=== PATIENT | male | born 1945 | race American Indian/Alaskan Native ===

== ENCOUNTER 2017-08-17 00:26 | Emergency (ER) | payer MEDICARE, OTHER ==
[2017-08-17 00:41] VITALS: TEMP 98
--- NOTE | 2017-08-17 01:00 | ED PDOC ---
Arrival/HPI - General Chief Complaint: Dizziness/Lightheaded Time Seen by Provider: 08/17/17 00:42 Historian: Patient, EMS - History of Present Illness Narrative History of Present Illness (Text): 08/17/17 00:54 72 year old male, with past medical history of arthritis, presents to the Emergency department via EMS accompanied by family complaining of hypertension and confusion prior to arrival. Patient informs feeling unwell with symptoms of high blood pressure and confusion while in the [place] cruise ship 1 day ago. As per ALS, patient was administered 5mg of IV lopressor after having a blood pressure of 210/110. Patient is currently in no acute distress and informs improvement to symptoms. Patient denies any headache but informs mild discomfort to back of his neck. Patient denies any chest pain, shortness of breath, abdominal pain, fever, chills, nausea, vomiting, diarrhea or any other complaints. Patient does not smoke but admits to occasional consumption of alcohol socially. Time/Duration: Prior to Arrival Symptom Onset: Gradual Symptom Course: Improving Activities at Onset: Light Context: Other (Cruise ship) Past Medical History - Provider Review Nursing Documentation Reviewed: Yes - Travel History If Yes, travel location?: [facility] - Infectious Disease Hx of Infectious Diseases: None - Musculoskeletal/Rheumatological Hx Musculoskeletal Disorders: Yes Hx Arthritis: Yes - Psychiatric Hx Substance Use: No Family/Social History - Physician Review Nursing Documentation Reviewed: Yes Family/Social History: No Known Family HX Smoking Status: Never Smoked Hx Alcohol Use: No Hx Substance Use: No Allergies/Home Meds Allergies/Adverse Reactions: Allergies No Known Allergies Allergy (Verified 08/17/17 00:38) Home Medications: Home Meds Medication Instructions Recorded Confirmed Losartan [Cozaar] 50 mg PO DAILY 08/17/17 08/17/17 Review of Systems - Physician Review All systems were reviewed & negative as marked: Yes - Review of Systems Constitutional: Normal. absent: Fevers Eyes: Normal ENT: Normal Respiratory: Normal. absent: SOB Cardiovascular: Other (High Blood Pressure ). absent: Chest Pain Gastrointestinal: Normal. absent: Abdominal Pain, Diarrhea, Nausea, Vomiting Genitourinary Male: Normal Musculoskeletal: Normal Skin: Normal Neurological: Normal Endocrine: Normal Hemo/Lymphatic: Normal Psychiatric: Other (Confusion ) Physical Exam Vital Signs Reviewed: Yes Vital Signs Temp Pulse Resp BP Pulse Ox 08/17/17 04:16 169/90 H 08/17/17 03:29 83 19 96 08/17/17 00:40 98.0 F 76 23 141/92 H 100 Temperature: Afebrile Blood Pressure: Hypertensive Pulse: Regular Respiratory Rate: Normal Appearance: Positive for: Well-Appearing, Non-Toxic, Comfortable Pain Distress: None Mental Status: Positive for: Alert and Oriented X 3 - Systems Exam Head: Present: Atraumatic, Normocephalic Pupils: Present: PERRL Extroacular Muscles: Present: EOMI Conjunctiva: Present: Normal Mouth: Present: Moist Mucous Membranes Neck: Present: Normal Range of Motion Respiratory/Chest: Present: Clear to Auscultation, Good Air Exchange. No: Respiratory Distress, Accessory Muscle Use Cardiovascular: Present: Regular Rate and Rhythm, Normal S1, S2. No: Murmurs Abdomen: Present: Normal Bowel Sounds. No: Tenderness, Distention, Peritoneal Signs Back: Present: Normal Inspection Upper Extremity: Present: Normal Inspection. No: Cyanosis, Edema Lower Extremity: Present: Normal Inspection. No: Edema Neurological: Present: GCS=15, CN II-XII Intact, Speech Normal Skin: Present: Warm, Dry, Normal Color. No: Rashes Psychiatric: Present: Alert, Oriented x 3, Normal Insight, Normal Concentration Medical Decision Making ED Course and Treatment: 08/17/17 01:01 Impression: 72 year old male presents to the Emergency department for elevated blood pressure and confusion. Plan: -- EKG -- Labs -- CT of Head -- Reassess and disposition Progress Notes: 08/17/17 02:29 CT of head reviewed by radiologist, shows nonspecific white matter changes. Acute infarction may be CT occult within first 24 hours. If a focal deficit persists, consider followup CT or MRI for further evaluation. - Lab Interpretations Lab Results: 08/17/17 01:10 08/17/17 01:10 Lab Results 08/17/17 01:10: Alcohol, Quantitative < 10 08/17/17 01:10: Sodium 141, Potassium 3.5 L, Chloride 101, Carbon Dioxide 26, Anion Gap 18, BUN 21, Creatinine 0.7 L, Est GFR ( Amer) > 60, Est GFR ( Non-Af Amer) > 60, Random Glucose 131 H, Calcium 10.0, Total Bilirubin 1.0, AST 37, ALT 52, Alkaline Phosphatase 40, Total Protein 8.1, Albumin 4.6, Globulin 3.6, Albumin/Globulin Ratio 1.3 08/17/17 01:10: WBC 9.2, RBC 4.41, Hgb 14.2, Hct 42.2, MCV 95.7, MCH 32.2, MCHC 33.6, RDW 13.6, Plt Count 237, MPV 9.3, Gran % 55.8, Lymph % (Auto) 35.6 H, [place] % (Auto) 7.6 H, Eos % (Auto) 0.8 L, Baso % (Auto) 0.2, Gran # 5.12, Lymph # 3.3, [place] # 0.7 H, Eos # 0.1, Baso # 0.02 08/17/17 00:50: POC Glucose (mg/dL) 131 H - RAD Interpretation Radiology Orders: 08/17/17 00:56 HEAD W/O CONTRAST [CT] 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 All medical record entries made by the Gurmeet were at my direction and personally dictated by me. I have reviewed the chart and agree that the record accurately reflects my personal performance of the history, physical exam, medical decision making, and the department course for this patient. I have also personally directed, reviewed, and agree with the discharge instructions and disposition. Disposition/Present on Arrival - Present on Arrival Any Indicators Present on Arrival: No History of DVT/PE: No History of Uncontrolled Diabetes: No Urinary Catheter: No History of Decub. Ulcer: No History Surgical Site Infection Following: None - Disposition Have Diagnosis and Disposition been Completed?: Yes Diagnosis: Hypertension Disposition: HOME/ ROUTINE Disposition Time: 07:00 Patient Plan: Discharge Condition: STABLE Prescriptions: amLODIPine [Norvasc] 10 mg PO DAILY #30 tab Forms: Fitfully (Slovak)
[2017-08-17 02:27] LABS: BASO # 0.02 K/mm3 (0.0-2.0); BASO % 0.2 % (0.0-3.0); EOS # 0.1 (0.0-0.7); EOS % 0.8 % (1.5-5.0); GRAN # 5.12 (1.4-6.5); GRAN % 55.8 % (50.0-68.0); HEMOGLOBIN 14.2 g/dL (14.0-18.0); LYMPH # 3.3 (1.2-3.4); LYMPH % 35.6 % (22.0-35.0); MEAN CELL VOLUME 95.7 fl (80.0-105.0); MEAN CORPUSCULAR HEMOGLOBIN 32.2 pg (25.0-35.0); MEAN CORPUSCULAR HGB CONC 33.6 g/dl (31.0-37.0); MEAN PLATELET VOLUME 9.3 fl (7.0-11.0); MONO # 0.7 (0.1-0.6); MONO % 7.6 % (1.0-6.0); RBC 4.41 10^6/uL (3.5-6.1); RED CELL DISTRIBUTION WIDTH 13.6 % (11.5-14.5); WHITE BLOOD COUNT 9.2 10^3/ul (4.5-11.0)
--- NOTE | 2017-08-17 02:28 | CT ---
EXAM: CT Head Without Intravenous Contrast CLINICAL HISTORY: 72 years old, male; Signs and symptoms; Altered mental status/memory loss TECHNIQUE: Axial computed tomography images of the head/brain without intravenous contrast. All CT scans at this facility use one or more dose reduction techniques, viz.: automated exposure control; ma/kV adjustment per patient size (including targeted exams where dose is matched to indication; i.e. head); or iterative reconstruction technique. Coronal and sagittal reformatted images were created and reviewed. COMPARISON: No relevant prior studies available. FINDINGS: Brain: [id number]-bo-[id number] atrophy. No intracranial hemorrhage. No mass. Minimal decreased attenuation within periventricular white matter. No definite edema. Ventricles: No hydrocephalus. Bones/joints: No acute fracture. Soft tissues: Unremarkable. Vasculature: Atherosclerotic disease of intracranial arteries. Sinuses: Scattered minimal to mild mucosal thickening. Tiny LEFT maxillary retention cyst. Mastoid air cells: No mastoid effusion. Orbits: Unremarkable as visualized. IMPRESSION: 1. Nonspecific white matter changes. Acute infarction may be CT occult within first 24 hours. If a focal deficit persists, consider followup CT or MRI for further evaluation. 2. Incidental/non-acute findings are described above.
[2017-08-17 02:29] LABS: ALB/GLOB RATIO 1.3 (1.1-1.8); ALBUMIN 4.6 g/dL (3.0-4.8); ALT/SGPT 52 U/L (7-56); AST/SGOT 37 U/L (17-59); BLOOD UREA NITROGEN 21 mg/dL (7-21); GFR AFRICAN-AMERICAN > 60; GFR NON-AFRICAN AMERICAN > 60
[2017-08-17] MEDS ORDERED: Potassium Chloride 10 mEq ER Tab PO STA (02:43)
[2017-08-17 03:30] VITALS: PULSE 83; RESP 19; O2SAT 96
[2017-08-17 04:16] VITALS: BP 169/90
--- NOTE | 2017-08-21 07:24 | CARD ---
APPROVED REPORT EKG Measurement Heart [id number] <Conclusion> Normal sinus rhythm Normal ECG
== END 2017-08-17 03:29 | disposition home or self-care (01) ==
LOC: ED 00:26
DX: I10 Essential (primary) hypertension (principal)
CPT/HCPCS: 70450; 80053; 82948; 85025; 93005; 99285; G0480